=== PATIENT | male | born 1985 | race African-American/Black ===

== ENCOUNTER 2023-06-24 06:28 | Emergency (ER) | payer OTHER ==
[2023-06-24 06:35] VITALS: RESP 16; BMI 23.0
[2023-06-24] MEDS ORDERED: ACETAMINOPHEN 1000 MG/100 ML BAG IVPB ONE (06:37)
[2023-06-24] MEDS ORDERED: KETOROLAC TROMETHAMINE 30 MG/1 ML VIAL IVPUSH ONE (07:34)
[2023-06-24] MEDS ORDERED: KETOROLAC TROMETHAMINE 30 MG/1 ML VIAL ONE (07:46)
[2023-06-24 07:55] LABS: INR 1.09 (0.83-1.09); PROTHROMBIN TIME (PATIENT) 12.6 SEC (9.7-13.0)
[2023-06-24 07:58] LABS: ACTIVATED PTT 28.9 SECONDS (25.2-36.5)
[2023-06-24 08:01] LABS: POTASSIUM 4.1 mmol/L (3.5-5.1)
[2023-06-24 08:03] LABS: ALBUMIN 3.9 g/dl (3.4-5.0); BLOOD UREA NITROGEN 10.6 mg/dL (7-18); CALCIUM 8.6 mg/dL (8.5-10.1)
[2023-06-24 08:06] LABS: CREATININE 1.1 mg/dL (0.55-1.3)
[2023-06-24 08:08] LABS: BILIRUBIN,TOTAL 2.6 mg/dL (0.2-1); TOT PROT 7.1 g/dl (6.4-8.2)
[2023-06-24] MEDS ORDERED: ONDANSETRON 4 MG/2 ML VIAL IVPUSH ONE (08:42)
[2023-06-24] MEDS ORDERED: morphine CARPU-JECT 4 MG/1 ML DISP.SYRIN IVPUSH ONE (08:42)
[2023-06-24 09:33] LABS: HEMATOCRIT 37.6 % (35.4-49); HEMOGLOBIN 13.8 GM/dL (11.7-16.9); MCH 30.9 pg (25.7-33.7); MEAN CELL VOLUME 84.1 fl (80-96); RBC 4.47 M/mm3 (4.00-5.60); RDW 18.2 % (11.9-15.9); RETICULOCYTES 4.23 % (0.5-1.5)
[2023-06-24 09:45] LABS: WHITE BLOOD COUNT 15.1 K/mm3 (4.0-10.0)
[2023-06-24 09:47] LABS: MEAN PLT VOLUME 8.8 fl (7.5-11.1); PLATELET COUNT 197 10^3/uL (134-434)
[2023-06-24 10:00] LABS: ANISOCYTOSIS 2+; CORRECTED WBC 12.69 K/mm3; MACROCYTOSIS 0; TARGET CELLS 2+
[2023-06-24] MEDS ORDERED: ONDANSETRON 4 MG/2 ML VIAL ONE (10:04)
[2023-06-24] MEDS ORDERED: morphine SULFATE 4 MG/ML VIAL ONE (10:04)
[2023-06-24] MEDS ORDERED: LACTATED RINGERS SOLUTION 1000 ML INFUS.BAG IV ONE (11:01)
[2023-06-24] MEDS ORDERED: HYDROmorphone HCl 2 MG/ML VIAL IVPUSH ONE ×2 (11:14→12:53)
[2023-06-24] MEDS ORDERED: HYDROmorphone HCl 2 MG/ML VIAL ONE ×2 (11:31→13:53)
[2023-06-24 14:28] VITALS: BP 114/82; PULSE 69; TEMP 98
== END 2023-06-24 14:47 | disposition home or self-care (01) ==
LOC: JER 06:28
PROC: 3E033GC Introduction of Other Therapeutic Substance into Peripheral Vein, Percutaneous Approach (ICD-10-PCS; principal; 2023-06-24)
PROC: 3E033GC Introduction of Other Therapeutic Substance into Peripheral Vein, Percutaneous Approach (ICD-10-PCS; 2023-06-24)
PROC: 3E0333Z Introduction of Anti-inflammatory into Peripheral Vein, Percutaneous Approach (ICD-10-PCS; 2023-06-24)
PROC: 3E033GC Introduction of Other Therapeutic Substance into Peripheral Vein, Percutaneous Approach (ICD-10-PCS; 2023-06-24)
PROC: 3E033GC Introduction of Other Therapeutic Substance into Peripheral Vein, Percutaneous Approach (ICD-10-PCS; 2023-06-24)
DX: M54.9 Dorsalgia, unspecified (principal); D57.00 Hb-SS disease with crisis, unspecified; X50.0XXA Overexertion from strenuous movement or load, initial encounter; Z20.822 Contact with and (suspected) exposure to COVID-19
CPT/HCPCS: 0241U-QW; 36415; 71045-TC-FY; 80053; 84484; 85025; 85045; 85610; 85730; 86850; 86900; 86901; 87086; 93005; 93010; 99285-25